=== PATIENT | male | born 1950 | race Caucasian/White ===

== ENCOUNTER 2018-04-16 12:25 | Observation (INO) | payer MEDICARE, SELFPAY ==
[2018-04-16] MEDS ORDERED: Adacel (T-DAP) 0.5 ML SYRINGE ONE (12:32)
[2018-04-16 12:44] LABS: #Basophils 0.1 thou/uL (0.0-0.2); #Eosinphils 0.1 thou/uL (0.0-0.7); #Lymphocytes 2.5 thou/uL (1.20-3.40); #Monocytes 0.9 thou/uL (0.11-0.59); #Neutrophils 10.5 thou/uL (1.40-6.50); %Basophils 0.5 % (0.0-1.0); %Eosinophils 0.8 % (0.0-10.0); %Lymphocytes 17.5 % (21.0-51.0); %Monocytes 6.4 % (0.0-10.0); %Neutrophils 74.8 % (42.0-75.0); Hemoglobin 16.4 g/dL (14.0-18.0); Mean Corpuscular HGB CONC 32.6 g/dL (32.0-36.0); Mean Corpuscular Hemoglobin 31.1 pg (27.0-31.0); Mean Corpuscular Volume 95.4 fL (78.0-98.0); Platelet Count 275 thou/uL (130-400); RBC Distribution Width 12.5 % (11.5-14.5); Red Blood Cell (RBC) Count 5.27 mill/uL (4.70-6.10); White Blood Cell (WBC) Count 14.1 thou/uL (4.8-10.8)
[2018-04-16] MEDS ORDERED: Fentanyl 100 MCG/2 ML VIAL ONE (12:56)
[2018-04-16 13:02] LABS: ALT (SGPT) 20 U/L (8-55); AST (SGOT) 31 U/L (5-34); Albumin 4.3 g/dL (3.4-4.8); Alkaline Phosphatase 82 U/L (40-150); Anion Gap 18 mmol/L (10-20); BUN (Urea Nitrogen) 10 mg/dL (8.4-25.7); Bilirubin, Total 0.5 mg/dL (0.2-1.2); Calc. Creatinine Clearance 0 mL/min (70-130); Calcium 9.8 mg/dL (7.8-10.44); Carbon Dioxide 23 mmol/L (23-31); Chloride 101 mmol/L (98-107); Estimated GFR-MDRD 89; Globulin 3.3 g/dL (2.4-3.5); Glucose 107 mg/dL (80-115); Potassium 3.5 mmol/L (3.5-5.1); Protein, Total 7.6 g/dL (5.8-8.1); Sodium 138 mmol/L (136-145)
[2018-04-16] MEDS ORDERED: Lidocaine 1% w/Epinephrine 1:100K 20 ML VIAL ONE (13:21)
[2018-04-16] MEDS ORDERED: Bacitracin Zinc 1 Packet ONE (13:41)
[2018-04-16] MEDS ORDERED: Ketorolac Tromethamine 30 MG/ML VIAL ONE (13:50)
[2018-04-16] MEDS ORDERED: Dextrose 50% Abboject 50 ML SYRINGE SLOW IVP PRN (13:54)
[2018-04-16] MEDS ORDERED: HumaLOG 300 UNITS/3 ML VIAL SC PRN (13:54)
[2018-04-16] MEDS ORDERED: Ondansetron PF 4 MG/2 ML Vial IVP PRN (13:54)
[2018-04-16] MEDS ORDERED: Dextrose 5% in Water 1,000 ML IV PRN (13:54)
[2018-04-16] MEDS ORDERED: hydrALAZINE 20 MG/ML VIAL SLOW IVP PRN (13:54)
[2018-04-16] MEDS ORDERED: Rib Fracture Protocol PO SCH (14:00)
[2018-04-16 14:04] LABS: Platelet Count 275 thou/uL (130-400)
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
[2018-04-16 14:13] LABS: Fibrinogen 550 mg/dL (253-463)
[2018-04-16 14:14] LABS: INR-International Normal Ratio 1.1; PTT 29.5 SEC (22.9-36.1); Prothrombin Time 13.8 SEC (12.0-14.7)
[2018-04-16] MEDS ORDERED: Nicotine 14 MG PATCH TOP SCH (14:15)
[2018-04-16 14:22] LABS: D-Dimer Test 7.97 *mcg/mL (0.27-0.43)
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
[2018-04-16 14:41] LABS: FSP-Qualitative ABNORMAL (Normal); FSP-Semiquantitative >=20 & <40 mcg/mL (Less than 5)
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
[2018-04-16] MEDS ORDERED: Cyclobenzaprine 10 MG TAB PO PRN (16:00)
[2018-04-16] MEDS ORDERED: ISOVUE-370 76%-LOCM 1 ML ONE (16:55)
--- NOTE | 2018-04-16 16:56 | RAD ---
PELVIC RADIOGRAPH: Date: 04-16-18 History: Trauma. FINDINGS: There is no evidence for a fracture or other acute osseous abnormality. Please correlate with subsequ ently performed CT of the pelvis. IMPRESSION: As above. POS: [facility]
[2018-04-16 17:07] VITALS: BMI 27.0
[2018-04-16] MEDS ORDERED: traMADol HCl 50 MG TAB ONE (17:16)
[2018-04-16] MEDS ORDERED: Acetaminophen 500 MG TAB ONE (17:17)
[2018-04-16] MEDS: traMADol HCl 50 MG TAB PO SCH ×2 (17:22→23:36)
[2018-04-16] MEDS: Acetaminophen 500 MG TAB PO SCH ×2 (17:23→23:36)
[2018-04-16] MEDS ORDERED: Ketorolac Tromethamine 30 MG/ML VIAL IVP SCH (18:00)
[2018-04-16] MEDS ORDERED: Lisinopril 10 MG TAB PO SCH (18:00)
[2018-04-16] MEDS: Gabapentin 100 MG CAP PO SCH (20:51)
[2018-04-16] MEDS: Ibuprofen 600 MG TAB PO SCH (20:52)
[2018-04-16] MEDS: Senokot S 8.6-50 MG TAB PO SCH ×2 (20:57→23:37)
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
[2018-04-17 05:07] LABS: Phosphorus 4.4 mg/dL (2.3-4.7)
[2018-04-17 05:08] LABS: Anion Gap 14 mmol/L (10-20); BUN (Urea Nitrogen) 11 mg/dL (8.4-25.7); Calc. Creatinine Clearance 96 mL/min (70-130); Calcium 8.9 mg/dL (7.8-10.44); Carbon Dioxide 24 mmol/L (23-31); Chloride 103 mmol/L (98-107); Estimated GFR-MDRD Greater than 90; Glucose 92 mg/dL (80-115); Magnesium 2.1 mg/dL (1.6-2.6); Potassium 3.8 mmol/L (3.5-5.1); Sodium 137 mmol/L (136-145)
[2018-04-17] MEDS: Ibuprofen 600 MG TAB PO SCH ×2 (05:30→14:53)
[2018-04-17] MEDS: Acetaminophen 500 MG TAB PO SCH ×2 (05:30→12:06)
[2018-04-17] MEDS: traMADol HCl 50 MG TAB PO SCH ×3 (05:30→12:45)
[2018-04-17 05:32] LABS: #Basophils 0.1 thou/uL (0.0-0.2); #Eosinphils 0.1 thou/uL (0.0-0.7); #Lymphocytes 2.2 thou/uL (1.20-3.40); #Neutrophils 7.4 thou/uL (1.40-6.50); %Basophils 0.5 % (0.0-1.0); %Eosinophils 0.8 % (0.0-10.0); %Lymphocytes 20.1 % (21.0-51.0); %Monocytes 9.1 % (0.0-10.0); %Neutrophils 69.4 % (42.0-75.0); Hemoglobin 13.4 g/dL (14.0-18.0); Mean Corpuscular HGB CONC 32.8 g/dL (32.0-36.0); Mean Corpuscular Volume 94.5 fL (78.0-98.0); Mean Platelet Volume 9.5 fL (7.4-10.4); Platelet Count 234 thou/uL (130-400); RBC Distribution Width 12.3 % (11.5-14.5); Red Blood Cell (RBC) Count 4.33 mill/uL (4.70-6.10); White Blood Cell (WBC) Count 10.7 thou/uL (4.8-10.8)
[2018-04-17] MEDS ORDERED: Potassium Chloride 20 MEQ TAB PO SCH (07:52)
[2018-04-17] MEDS: Gabapentin 100 MG CAP PO SCH ×2 (08:11→14:53)
[2018-04-17] MEDS: Senokot S 8.6-50 MG TAB PO SCH (08:11)
[2018-04-17] MEDS ORDERED: Lisinopril 10 MG TAB PO SCH ×2 (09:00)
[2018-04-17] MEDS ORDERED: Enoxaparin Sodium 40 MG/0.4 ML SYRINGE SC SCH (09:00)
[2018-04-17] MEDS ORDERED: Polyethylene Glycol 3350 17 GM Packet PO SCH (09:00)
[2018-04-17 12:44] VITALS: BP 139/62; TEMP 97.4
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
== END 2018-04-17 15:54 | disposition home or self-care (01) ==
LOC: ERS 12:25 → ERHOLD 14:24 → 2SW 18:27
PROVIDERS: ADMIT Surgery; ATTEND Surgery
PROC: 0JQ00ZZ Repair Scalp Subcutaneous Tissue and Fascia, Open Approach (ICD-10-PCS; principal; 2018-04-16)
DX: S01.02XA Laceration with foreign body of scalp, initial encounter (principal); S22.20XA Unspecified fracture of sternum, initial encounter for closed fracture; G89.11 Acute pain due to trauma; F17.210 Nicotine dependence, cigarettes, uncomplicated; I10 Essential (primary) hypertension; K57.10 Diverticulosis of small intestine without perforation or abscess without bleeding; K57.30 Diverticulosis of large intestine without perforation or abscess without bleeding; V44.5XXA Car driver injured in collision with heavy transport vehicle or bus in traffic accident, initial encounter
CPT/HCPCS: 12035; 70450; 71045; 71260; 72125; 72170; 74177; 80048; 80053; 82962; 83735; 84100; 84484; 85025 ×2; 85049; 85300; 85362; 85379; 85384; 85610; 85730; 90471; 90715; 93005; 93306; 94640 ×2; 94760; 96365; 96368; 96375; 99285; G0378 ×2; 36415; 36416; G0390; J0131; J1650; J1885; J2001; J3010; J7620; Q9966

== ENCOUNTER 2020-07-07 20:42 | Inpatient (IN) | payer MEDICARE ==
[2020-07-07] MEDS ORDERED: Dexamethasone 10 MG/ML VIAL ONE (21:18)
[2020-07-07] MEDS ORDERED: Albuterol Sulfate 2.5 mg/3 ml Neb ONE (21:19)
[2020-07-07] MEDS ORDERED: Albuterol 200 PUFF (6.7GM INHALER) ONE (21:19)
[2020-07-07 21:52] LABS: #Lymphocytes 0.8 thou/uL (1.20-3.40); #Monocytes 0.4 thou/uL (0.11-0.59); #Neutrophils 5.1 thou/uL (1.40-6.50); %Basophils 0.3 % (0.0-1.0); %Eosinophils 0.3 % (0.0-10.0); %Monocytes 6.9 % (0.0-10.0); %Neutrophils 79.5 % (42.0-75.0); Hemoglobin 12.2 g/dL (14.0-18.0); Mean Corpuscular HGB CONC 34.5 g/dL (32.0-36.0); Mean Corpuscular Hemoglobin 30.9 pg (27.0-31.0); Mean Corpuscular Volume 89.5 fL (78.0-98.0); Mean Platelet Volume 8.8 fL (7.4-10.4); Platelet Count 209 thou/uL (130-400); RBC Distribution Width 12.3 % (11.5-14.5); Red Blood Cell (RBC) Count 3.94 mill/uL (4.70-6.10); White Blood Cell (WBC) Count 6.4 thou/uL (4.8-10.8)
[2020-07-07 22:15] LABS: ALT (SGPT) 19 U/L (8-55); AST (SGOT) 27 U/L (5-34); Albumin 3.8 g/dL (3.4-4.8); Alkaline Phosphatase 67 U/L (40-110); Anion Gap 16 mmol/L (10-20); BUN (Urea Nitrogen) 21 mg/dL (8.4-25.7); Bilirubin, Total 0.2 mg/dL (0.2-1.2); Calc. Creatinine Clearance 0 mL/min (70-130); Calcium 8.4 mg/dL (7.8-10.44); Carbon Dioxide 19 mmol/L (23-31); Chloride 101 mmol/L (98-107); Globulin 3.5 g/dL (2.4-3.5); Glucose 117 mg/dL (83-110); Potassium 4.8 mmol/L (3.5-5.1); Protein, Total 7.3 g/dL (5.8-8.1); Sodium 131 mmol/L (136-145)
[2020-07-08 01:51] LABS: Hemoglobin A1c 5.6 % (4.0-6.0)
[2020-07-08 01:59] LABS: Lactic Acid 0.8 mmol/L (0.5-2.2)
[2020-07-08] MEDS ORDERED: Potassium Chloride 20 MEQ in Lactated Ringer's 1,000 ML IV SCH (02:00)
[2020-07-08] MEDS ORDERED: Benzonatate 100 MG CAP PO PRN (02:55)
[2020-07-08 04:42] LABS: Hemoglobin 12.2 g/dL (14.0-18.0); Mean Corpuscular HGB CONC 33.1 g/dL (32.0-36.0); Mean Corpuscular Hemoglobin 30.1 pg (27.0-31.0); Mean Corpuscular Volume 90.9 fL (78.0-98.0); Mean Platelet Volume 8.8 fL (7.4-10.4); Platelet Count 221 thou/uL (130-400); RBC Distribution Width 12.4 % (11.5-14.5); Red Blood Cell (RBC) Count 4.05 mill/uL (4.70-6.10); White Blood Cell (WBC) Count 5.6 thou/uL (4.8-10.8)
[2020-07-08] MEDS ORDERED: Lactated Ringer's 1,000 ML IV SCH (04:45)
[2020-07-08 04:54] LABS: ALT (SGPT) 20 U/L (8-55); AST (SGOT) 27 U/L (5-34); Albumin 3.8 g/dL (3.4-4.8); Alkaline Phosphatase 67 U/L (40-110); Anion Gap 15 mmol/L (10-20); BUN (Urea Nitrogen) 26 mg/dL (8.4-25.7); Bilirubin, Total 0.3 mg/dL (0.2-1.2); Calc. Creatinine Clearance 0 mL/min (70-130); Calcium 8.6 mg/dL (7.8-10.44); Carbon Dioxide 23 mmol/L (23-31); Chloride 99 mmol/L (98-107); Globulin 3.6 g/dL (2.4-3.5); Glucose 150 mg/dL (83-110); Potassium 5.8 mmol/L (3.5-5.1); Protein, Total 7.4 g/dL (5.8-8.1); Sodium 131 mmol/L (136-145)
[2020-07-08 05:15] LABS: Band 18 % (5-11); Lymphocytes 10 % (21-51); MDiff Complete? YES; Monocytes 4 % (0-10); Neutrophil 68 % (42-75)
[2020-07-08] MEDS ORDERED: Lisinopril 20 MG TAB PO SCH (09:00)
[2020-07-08] MEDS ORDERED: Enoxaparin Sodium 40 MG/0.4 ML SYRINGE SC SCH (09:00)
[2020-07-08] MEDS ORDERED: Montelukast Sodium 10 mg Tablet PO SCH (09:00)
[2020-07-08] MEDS ORDERED: Atorvastatin Calcium 10 MG TAB PO SCH (09:00)
[2020-07-08] MEDS ORDERED: Lisinopril 10 MG TAB ONE (09:35)
[2020-07-08] MEDS ORDERED: Enoxaparin Sodium 40 MG/0.4 ML SYRINGE ONE (09:35)
[2020-07-08 09:46] VITALS: BP 111/56; TEMP 98.1
[2020-07-08 11:30] LABS: Anion Gap 14 mmol/L (10-20); BUN (Urea Nitrogen) 27 mg/dL (8.4-25.7); Calc. Creatinine Clearance 0 mL/min (70-130); Calcium 8.6 mg/dL (7.8-10.44); Carbon Dioxide 23 mmol/L (23-31); Chloride 97 mmol/L (98-107); Glucose 175 mg/dL (83-110); Potassium 4.5 mmol/L (3.5-5.1); Sodium 129 mmol/L (136-145)
== END 2020-07-08 13:44 | disposition home or self-care (01) | DRG 177 ==
LOC: ERS 20:42 → ERHOLD 22:34
PROVIDERS: ADMIT Family Medicine; ATTEND Family Medicine
PROC: 8E0ZXY6 Isolation (ICD-10-PCS; principal; 2020-07-07)
DX: U07.1 COVID-19 (principal); J12.82 Pneumonia due to coronavirus disease 2019; E87.1 Hypo-osmolality and hyponatremia; E87.2 Acidosis; R63.0 Anorexia; F17.210 Nicotine dependence, cigarettes, uncomplicated; I10 Essential (primary) hypertension; J30.2 Other seasonal allergic rhinitis; E78.5 Hyperlipidemia, unspecified; D64.9 Anemia, unspecified; K21.9 Gastro-esophageal reflux disease without esophagitis; F39 Unspecified mood [affective] disorder; Z90.89 Acquired absence of other organs; Z79.899 Other long term (current) drug therapy; Z79.891 Long term (current) use of opiate analgesic
CPT/HCPCS: 36415; 71045; 80053; 83036; 83605; 84145; 84484; 85007; 85025; 85027; 85379; 85652; 86140; 93005; 93010; 96374; J1100; J1650; J3480; J7120; J7611